=== PATIENT | male | born 1990 | race Caucasian/White ===

== ENCOUNTER 2017-08-06 15:46 | Emergency (ER) | payer SELFPAY ==
[2017-08-06] MEDS ORDERED: Proparacaine 0.5% Ophth Soln 15 ML Bottle EYELF ONE (15:54)
[2017-08-06] MEDS ORDERED: Fluorescein 0.6 MG Ophth Strip EYEBOTH ONE (16:41)
--- NOTE | 2017-08-06 16:53 | EDM.PDOC ---
ED HPI GENERAL MEDICAL PROBLEM - General Chief Complaint: Eye Problems Stated Complaint: L EYE IRRITATION/PAIN/SOME LOSS OF VISION Time Seen by Provider: 08/06/17 17:15 Source of Information: Reports: Patient History Limitations: Reports: No Limitations - History of Present Illness INITIAL COMMENTS - FREE TEXT/NARRATIVE: Patient is a 27 y/o male who presents to the E.D. complaining of left eye irritation. Patient works as a cook and states yesterday was evaluated by PCP for pink eye. He was placed on amoxicillin and moxifloxacin gtt's. He has been taking as instructed. Feels as if something is in his eye. He admitts to rubbing his eye excessively. Has noticed small area of blood to the superior aspect of the eye. Thick mucus drainage has improved with the eye drops. States at times with placing eye gtts and discharge has blurred vision. No vision loss noted. He does state the eye discomfort has improved from yesterday. Wears glasses to watch TV. Patient denies at any time of a foreign object into the eye prior to onset of redness. Left Eye Pain Score (Numeric/FACES): 10 - Related Data Allergies Allergy/AdvReac Type Severity Reaction Status Date / Time bacitracin Allergy Rash Verified 09/12/15 16:20 [From Neosporin ([id number])] bacitracin zinc Allergy Rash Verified 09/12/15 16:20 [From Neosporin (dzw-ktv-srydw)] neomycin sulfate Allergy Rash Verified 09/12/15 16:20 [From Neosporin ([id number]-zjk-ibqil)] polymyxin B Allergy Rash Verified 09/12/15 16:20 [From Neosporin (gum-atw-[id number])] Home Meds: Home Meds Amoxicillin/Clavulanate K [Augmentin 875-125 MG] 1 tab PO BID 08/06/17 [History] Moxifloxacin [Vigamox 0.5% Ophth Soln] 1 drop TOP TID 08/06/17 [History] Past Medical History - Past Health History Medical/Surgical History: Denies Medical/Surgical History Psychiatric History: Reports: Anxiety, Depression, Panic Attack - Past Surgical History HEENT Surgical History: Reports: Naso-Sinus Surgery GI Surgical History: Reports: Appendectomy Social & Family History - Tobacco Use Smoking Status *Q: Current Every Day Smoker Years of Tobacco use: 10 Packs/Tins Daily: 1 Month/Year Tobacco Last Used: 2-3 MONTHS AGO Second Hand Smoke Exposure: Yes - Caffeine Use Caffeine Use: Reports: Coffee, Energy Drinks, Soda, Tea - Alcohol Use Days Per Week of Alcohol Use: 7 Number of Drinks Per Day: 24 Total Drinks Per Week: 168 - Recreational Drug Use Recreational Drug Use: No Drug Use in Last 12 Months: Yes Recreational Drug Type: Reports: Heroin, Marijuana/Hashish, Methamphetamine Recreational Drug Use Frequency: Daily Recreational Drug Last Use: 04/21/15 - Living Situation & Occupation Living situation: Reports: Single, Alone Occupation: Employed ED ROS GENERAL - Review of Systems Review Of Systems: See Below HEENT: Reports: Vision Change (intermittent blurred vision) ED EXAM GENERAL W FULL EYE - Physical Exam Exam: See Below Exam Limited By: No Limitations General Appearance: Alert, WD/WN, No Apparent Distress Eye Exam: Bilateral Eye: EOMI, PERRL Visual Acuity (R) 20/: 50 Visual Acuity (L) 20/: 70 With Correction: No Eyelids: Left: Normal Appearance Conjunctiva & Sclera: Left: Foreign Body (none found), Injected, Subconjuctival Hemorrhage (9 oclock to 12 oclock) Cornea Exam: Left: Normal Appearance, Examined with Flourescein Pupillary Size: Bilateral: 4 mm Pupillary Reaction: Bilateral: Brisk Ears: Hearing Grossly Normal Nose: Normal Inspection Throat/Mouth: Normal Voice, No Airway Compromise Head: Atraumatic, Normocephalic Neck: Normal Inspection, Supple Respiratory/Chest: No Respiratory Distress, No Accessory Muscle Use Cardiovascular: Normal Peripheral Pulses, Regular Rate, Rhythm Neurological: Alert, Oriented, CN II-XII Intact, Normal Cognition, No Motor/ Sensory Deficits Psychiatric: Normal Affect, Normal Mood Skin Exam: Warm, Dry, Normal Color Course - Vital Signs Last Recorded V/S: Last Vital Signs Temp 98.3 F 08/06/17 15:55 Pulse 86 08/06/17 17:40 Resp 18 08/06/17 17:40 BP 140/100 H 08/06/17 17:40 Pulse Ox 97 08/06/17 17:40 - Orders/Labs/Meds Meds: Medications Discontinued Medications Generic Name Dose Route Start Last Admin Trade Name Rekha PRN Reason Stop Dose Admin Fluorescein Sodium 0.6 mg 08/06/17 16:41 08/06/17 17:03 Ful-Bhavana EYEBOTH 08/06/17 16:42 0.6 mg ONETIME ONE Administration Proparacaine HCl 2 ml 08/06/17 15:54 08/06/17 15:59 Proparacaine 0.5% Ophth Soln EYELF 08/06/17 15:55 2 drop ONETIME ONE Administration - Re-Assessments/Exams Free Text/Narrative Re-Assessment/Exam: Under slit lamp examination and on inverting the eyelid with fluorescein stain no obvious corneal abrasion noted and or foreign object. Conjunctiva erythema noted with small subconjunctival hemorrhage. Patient is on amoxicillin and also moxifloxacin eyedrops. Discharge has improved. Still has a grainey sensation of foreign objects present. He has been rubbing his eyes excessively. Will discharge patient home with instructions as documented. Departure - Departure Time of Disposition: 17:29 Disposition: Home, Self-Care 01 Condition: Good Clinical Impression: Subconjunctival hemorrhage Qualifiers: Laterality: left Qualified Code(s): H11.32 - Conjunctival hemorrhage, left eye Conjunctivitis of left eye Qualifiers: Conjunctivitis type: acute Acute conjunctivitis type: bacterial Qualified Code( s): H10.32 - Unspecified acute conjunctivitis, left eye - Discharge Information Instructions: Bacterial Conjunctivitis, Subconjunctival Hemorrhage Referrals: PCP,None [Primary Care Provider] - Forms: ED Department Discharge Additional Instructions: Continue taking the amoxicillin and moxifloxacin eyedrops as prescribed. Take ibuprofen 600 mg every 6 hours and Tylenol 650 mg every 6 hours as needed for pain. Do not rub the eye. Apply cold compresses to the affected eye. 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 Return to the E.D. for any new or worsening symptoms.
[2017-08-06 17:46] VITALS: BP 140/100
== END 2017-08-06 17:40 | disposition home or self-care (01) ==
LOC: JD.ED 15:46
DX: H11.32 Conjunctival hemorrhage, left eye (principal); H10.32 Unspecified acute conjunctivitis, left eye; F17.210 Nicotine dependence, cigarettes, uncomplicated; Z88.1 Allergy status to other antibiotic agents; Z88.8 Allergy status to other drugs, medicaments and biological substances; Z90.49 Acquired absence of other specified parts of digestive tract
CPT/HCPCS: 99283

== ENCOUNTER 2018-05-25 20:16 | Emergency (ER) | payer SELFPAY ==
[2018-05-25 20:29] VITALS: BP 171/97
--- NOTE | 2018-05-25 21:18 | EDM.PDOC ---
ED HPI GENERAL MEDICAL PROBLEM - General Chief Complaint: Lower Extremity Injury/Pain Stated Complaint: INJURED LEFT ANKLE Time Seen by Provider: 05/25/18 20:26 Source of Information: Reports: Patient, RN Notes Reviewed History Limitations: Reports: No Limitations - History of Present Illness INITIAL COMMENTS - FREE TEXT/NARRATIVE: The patient states that he slipped on ice while walking home around 19:30 tonight, injuring his left ankle. No prior left ankle injury, and the patient is otherwise uninjured. The patient states that his mother drove him to the ED, and will return for him. The patient does not have a PCP. 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 [No Known Home Meds] 05/25/18 [History] Past Medical History Musculoskeletal History: Reports: Fracture (left hand) Psychiatric History: Reports: Addiction (methamphetamine, heroin), Anxiety, Depression, Panic Attack - Infectious Disease History Infectious Disease History: Reports: Chicken Pox, Influenza - Past Surgical History HEENT Surgical History: Reports: Naso-Sinus Surgery (septoplasty) GI Surgical History: Reports: Appendectomy Musculoskeletal Surgical History: Reports: ORIF (left hand) Social & Family History - Family History Family Medical History: Noncontributory - Tobacco Use Smoking Status *Q: Current Every Day Smoker Years of Tobacco use: 12 Packs/Tins Daily: 1 Packs/Tins Daily Comment: Down from 2 ppd - Caffeine Use Caffeine Use: Reports: Coffee, Energy Drinks, Soda - Alcohol Use Alcohol Use History: Yes Alcohol Use Frequency: Socially (occasionally to excess) - Recreational Drug Use Recreational Drug Use: Yes Drug Use in Last 12 Months: Yes Recreational Drug Type: Reports: Ecstasy (lasst took in High School), Heroin ( last injected 2016), Marijuana/Hashish (smokes regularly), Methamphetamine ( last injected 2015), Other (see below) (Opioids - last abused 2016) - Living Situation & Occupation Living situation: Reports: Single, Alone Occupation: Employed ([employer]) Review of Systems - Review of Systems Review Of Systems: ROS reveals no pertinent complaints other than HPI. ED EXAM, GENERAL - Physical Exam Exam: See Below Exam Limited By: No Limitations General Appearance: Alert, WD/WN, No Apparent Distress Extremities: Other (Significant swelling over the lateral malleolus. There is tenderness to the anterior syndesmosis and over the lateral malleolus, with minimal tenderness over the posterior syndesmosis. No tenderness over the medial malleolus. Strong dorsalis pedis and posterior tibialis pulses bilaterally. Capillary refill in the toes under 2 seconds. The patient reports no decreased sensation to the left toes.) ED TRAUMA EXTREMITY PROCEDURES - Splinting Left Lower Extremity Splint Site: Left ankle Pre-Procedure NV Status: Normal Post-Procedure NV Status: Normal Splint Material: Fiberglass Splint Design: Posterior Applied & Form Fitted By: Provider Provider Post-Splint Application NV Check: NV Status Normal, Good Position Complications: No Course - Vital Signs Last Recorded V/S: Last Vital Signs Temp 36.4 C 05/25/18 20:27 Pulse 112 H 05/25/18 20:27 Resp 16 05/25/18 20:27 BP 171/97 H 05/25/18 20:27 Pulse Ox 96 05/25/18 20:27 - Orders/Labs/Meds Orders: Active Orders 24 hr Category Date Time Status Ankle Min 3V Lt [CR] Stat Exams 05/25/18 20:39 Taken DME for Discharge [COMM] Stat Oth 05/25/18 21:29 Ordered Meds: Medications Discontinued Medications Generic Name Dose Route Start Last Admin Trade Name Freq PRN Reason Stop Dose Admin Hydrocodone Bitart/Acetaminophen 2 tab 05/25/18 21:28 05/25/18 21:33 Cordova 325-5 Mg PO 05/25/18 21:29 2 tab ONETIME ONE Administration - Re-Assessments/Exams Free Text/Narrative Re-Assessment/Exam: 05/25/18 21:05 4-view radiographs of the left ankle appear to demonstrate a minimally displaced distal fibular fracture. No other bony injuries identified. Formal read per the Radiologist pending. 05/25/18 21:28 A short leg posterior mold Ortho-Glass splint was applied, with the ankle at 90 . The patient will receive 2 tablets of Cordova here in the ED, however, due to his history of heroin abuse, no prescriptions for opioids will be written. Instead, we will have the patient remain at home with his left ankle iced and elevated for 2 days - I will write him a note for work - and he is to take over-the- counter ibuprofen as needed for discomfort. The patient will be fitted for crutches prior to discharge from the ED. I would like him to follow-up with Dr. Piedra in about a week. Departure - Departure Time of Disposition: 21:31 Disposition: Home, Self-Care 01 Condition: Fair Clinical Impression: Closed fracture of left distal fibula - Discharge Information *PRESCRIPTION DRUG MONITORING PROGRAM REVIEWED*: Not Applicable *COPY OF PRESCRIPTION DRUG MONITORING REPORT IN PATIENT [place]: Not Applicable Instructions: Fibular Ankle Fracture Treated With or Without Immobilization, Adult, Ankle Fracture, [id number] Referrals: Johann Piedra MD [Physician] - Forms: ED Department Discharge, ED Return to Work/School Form Additional Instructions: You were seen in the emergency room after slipping on ice and injuring her left ankle. Workup in the ER included x-rays of your left ankle, which showed a distal left fibular fracture. Your left leg has been placed into a splint. The splint cannot get wet, and you cannot bear weight on it. Elevate your left ankle is much as possible over the next 2 days, and apply an ice pack right over the splint. A note for work has been provided to you. Only ambulate with the assistance of crutches. Take gonn-[id number]-[id number] ibuprofen, 3-4 tablets (600-800 mg) every 8 hours, with food, as needed for discomfort. Follow-up with the Orthopedic Surgeon Dr. Johann Piedra on or about , . If any other problems, please do not hesitate to return to the ER. - My Orders Last 24 Hours: My Active Orders 05/25/18 20:39 Ankle Min 3V Lt [CR] Stat 05/25/18 21:29 DME for Discharge [COMM] Stat - Assessment/Plan Last 24 Hours: My Active Orders 05/25/18 20:39 Ankle Min 3V Lt [CR] Stat 05/25/18 21:29 DME for Discharge [COMM] Stat
[2018-05-25] MEDS ORDERED: Acetaminophen/HYDROcodone 325-5 MG Tab PO ONE (21:28)
--- NOTE | 2018-05-26 07:03 | CR ---
Left ankle: Four views of the left ankle were obtained. Comparison: No previous study. Minimally displaced lateral malleolus fracture is seen. Soft tissue swelling is noted. No additional fracture or other bony abnormality is seen. Impression: 1. Minimally displaced lateral malleolus fracture with soft tissue swelling. Diagnostic code #3
== END 2018-05-25 21:43 | disposition home or self-care (01) ==
LOC: JD.ED 20:16
DX: S82.62XA Displaced fracture of lateral malleolus of left fibula, initial encounter for closed fracture (principal); Z88.0 Allergy status to penicillin; Z88.1 Allergy status to other antibiotic agents; F17.210 Nicotine dependence, cigarettes, uncomplicated; W00.0XXA Fall on same level due to ice and snow, initial encounter
CPT/HCPCS: 29515; 73610; 99283; A9270